=== PATIENT | male | born 1950 | race Caucasian/White ===

== ENCOUNTER 2017-09-24 19:28 | Observation (INO) | payer MEDICARE ==
[2017-09-24] MEDS ORDERED: Meclizine HCl 25 MG TAB ONE (20:27)
--- NOTE | 2017-09-24 20:32 | RAD ---
CHEST ONE VIEW 09/24/17 HISTORY: Chest pain. FINDINGS: No comparison. The cardiac silhouette is magnified by projection. Pulmonary vasculature is unremarkable. Mediastinum is midline. There is no confluent air space consolidation or evidence of pneumothorax. IMPRESSION: No active cardiopulmonary abnormalities are demonstrated. POS: [facility]
[2017-09-24 20:46] LABS: #Eosinphils 0.1 thou/uL (0.0-0.7); #Lymphocytes 0.8 thou/uL (1.20-3.40); #Monocytes 0.8 thou/uL (0.11-0.59); #Neutrophils 5.7 thou/uL (1.40-6.50); %Basophils 0.5 % (0.0-1.0); %Eosinophils 1.2 % (0.0-10.0); %Lymphocytes 10.7 % (21.0-51.0); Hematocrit 46.2 % (42.0-52.0); Mean Platelet Volume 7.5 fL (7.4-10.4); Red Blood Cell (RBC) Count 4.82 mill/uL (4.70-6.10); White Blood Cell (WBC) Count 7.4 thou/uL (4.8-10.8)
[2017-09-24 21:08] LABS: ALT (SGPT) 18 U/L (8-55); AST (SGOT) 19 U/L (5-34); Alkaline Phosphatase 79 U/L (40-150); Anion Gap 12 mmol/L (10-20); BUN (Urea Nitrogen) 16 mg/dL (8.4-25.7); Bilirubin, Total 0.5 mg/dL (0.2-1.2); CK (CPK) 278 U/L (30-200); Calc. Creatinine Clearance 0 mL/min (70-130); Calcium 9.2 mg/dL (7.8-10.44); Carbon Dioxide 26 mmol/L (23-31); Chloride 106 mmol/L (98-107); Estimated GFR-MDRD 64; Globulin 2.6 g/dL (2.4-3.5); Lipase 29 U/L (8-78); Protein, Total 6.5 g/dL (5.8-8.1)
[2017-09-24 21:12] LABS: Troponin I Less than 0.010 ng/mL (< 0.028)
[2017-09-24] MEDS ORDERED: Diabetic Tussin 200 MG/10 ML UDCUP PO PRN (22:03)
[2017-09-24] MEDS ORDERED: Senokot 8.6 MG TAB PO PRN (22:03)
[2017-09-24] MEDS ORDERED: Nitroglycerin 0.4 MG TAB (25 Tab Bottle) PO PRN (22:03)
[2017-09-24] MEDS ORDERED: Bisacodyl 5 MG TAB PO PRN (22:03)
[2017-09-24] MEDS ORDERED: cloNIDine 0.1 MG TAB PO PRN (22:03)
[2017-09-24] MEDS ORDERED: Lorazepam 1 MG TAB PO PRN (22:03)
[2017-09-24] MEDS ORDERED: Mag-Al 1200 mg/1200 mg/30 ML UDCUP PO PRN (22:03)
[2017-09-24] MEDS ORDERED: hydrALAZINE 20 MG/ML VIAL SLOW IVP PRN (22:03)
[2017-09-24] MEDS ORDERED: Calcium Carbonate 500 MG ChewTAB PO PRN (22:03)
[2017-09-24] MEDS ORDERED: Ondansetron HCl/PF 4 MG/2 ML Vial IVP PRN (22:03)
[2017-09-24] MEDS ORDERED: Benzonatate 100 MG CAP PO PRN (22:03)
[2017-09-24] MEDS ORDERED: HYDROcodone/Acetaminophen 5/325 mg Tablet PO PRN (22:03)
[2017-09-24] MEDS ORDERED: Nitroglycerin 0.4 MG TAB (25 Tab Bottle) SL PRN (22:03)
[2017-09-24] MEDS ORDERED: Acetaminophen 325 MG TAB PO PRN (22:03)
[2017-09-24] MEDS ORDERED: traMADol HCl 50 MG TAB PO PRN (22:03)
[2017-09-24] MEDS ORDERED: Loratadine 10 MG TAB PO PRN (22:03)
[2017-09-24 23:32] VITALS: BMI 27.4
[2017-09-24 23:56] LABS: Troponin I Less than 0.010 ng/mL (< 0.028)
[2017-09-25 02:42] LABS: Band 1 % (5-11); Hematocrit 43.5 % (42.0-52.0); Mean Platelet Volume 7.5 fL (7.4-10.4); Neutrophil 60 % (42-75); Red Blood Cell (RBC) Count 4.49 mill/uL (4.70-6.10); White Blood Cell (WBC) Count 4.9 thou/uL (4.8-10.8)
[2017-09-25 02:55] LABS: Troponin I Less than 0.010 ng/mL (< 0.028)
[2017-09-25 02:58] LABS: Anion Gap 11 mmol/L (10-20); BUN (Urea Nitrogen) 17 mg/dL (8.4-25.7); Calc. Creatinine Clearance 83 mL/min (70-130); Calcium 9.2 mg/dL (7.8-10.44); Carbon Dioxide 25 mmol/L (23-31); Chloride 108 mmol/L (98-107); Estimated GFR-MDRD 69
--- NOTE | 2017-09-25 05:43 | HP ---
DATE OF ADMISSION: 09/24/2017 The patient was seen on 09/24/2017 prior to midnight. PRIMARY CARE PHYSICIAN: Ibrahima Diaz M.D. CHIEF COMPLAINT: Left arm pain radiating to left shoulder. HISTORY OF PRESENT ILLNESS: Mr. Cotton is a pleasant, 67-year-old male with past medical history of hypertension, who presented to the emergency room with the above-mentioned complaint. History is ma inly obtained with the patient himself and electronic medical records have been reviewed. The patient reports that he has been hunting using a bow and arrow as he has always done. He was sit ting in a tree and he feels that he must have pulled his bow backwards too much and started to have p ain in the triceps area in his left arm. The pain was of a dull, squeezing kind of pain, and nothing that he could think "would make it better or worse." It was radiating through his left shoulder phuc de. He reported that his blood pressure was somewhat on the higher side with systolic around 130s an d diastolic around 80s. He decided to work out because he thinks that working out makes his blood pr essure go down. He was surprised when his blood pressure actually went up by working out as high as 154/100. He only takes lisinopril at home in the morning, and normally, his blood pressure in the 90 s range. Given high blood pressure, he got worried and called EMS. EMS found that he was hypoxic wi oxygen saturation of 84% and he was brought to the emergency room. Upon presentation to the ER, he was hemodynamically stable. His blood pressure was 132/97 with a pul se of 75 and saturation was 98% on room air. He underwent a 12-lead EKG, which showed first-degree A V block, but normal sinus rhythm. His cardiac enzymes were unremarkable. He was given aspirin in e emergency room and is now being admitted for ACS rule out. The patient denies history of similar symptoms. He denies any cardiac history. He denies any other recent illnesses. He denies any recent travels. He denies any shortness of breath even though his o xygen saturations were found to be low. He denies any dizziness, diaphoresis, nausea, vomiting, or p alpitations with the symptoms today. He denies any recent travels. He reports that even while sitti ng in the tree, he would stand and sit alternatively and is somewhat morning around. PAST MEDICAL HISTORY: Hypertension, history of prostate cancer 4 years ago, treated with radiation. He reports that his most recent PSA was within normal range. He follows up at [facility]. PAST SURGICAL HISTORY: Left knee replacement. PSYCHIATRIC HISTORY: No anxiety or depression. SOCIAL HISTORY: He is and lives with his family. No history of drug, tobacco or alcohol abu se. FAMILY HISTORY: Significant for heart disease in his father, who at the age of 55. He was also a smoker. He denies any history of stroke, diabetes, hypertension or cancer in his family. ALLERGIES: No known medication allergies. CURRENT MEDICATIONS: Lisinopril 10 mg daily. REVIEW OF SYSTEMS: The following complete review of systems was negative, unless otherwise mentioned in the HPI or below: CONSTITUTIONAL: Weight loss or gain, ability to conduct usual activities. SKIN: Rash, itching. EYES: Double vision, pain. ENT/MOUTH: Nose bleeding, neck stiffness, pain, tenderness. CARDIOVASCULAR: Palpitations, dyspnea on exertion, orthopnea. RESPIRATORY: Shortness of breath, wheezing, cough, hemoptysis, fever or night sweats. GASTROINTESTINAL: Poor appetite, abdominal pain, heartburn, nausea, vomiting, constipation, or diarr hea. GENITOURINARY: Urgency, frequency, dysuria, nocturia. MUSCULOSKELETAL: Pain, swelling. NEUROLOGIC/PSYCHIATRIC: Anxiety, depression. ALLERGY/IMMUNOLOGIC: Skin rash, bleeding tendency. LABORATORY DATA: His CBC shows macrocytosis with normal hemoglobin. Neutrophils of 76% with WBCs at 7.4. His D-dimer is less than 0.27. Serum chemistries unremarkable except for creatinine kinase of 278. Troponin is less than 0.010 x2. BNP is normal. Lipase is normal. Lipid panel is within norm al limits. Chest x-ray by my review has no evidence to suggest pulmonary effusion or edema. A 12-le ad EKG by my review shows normal sinus rhythm with right bundle branch block, otherwise unremarkable. PHYSICAL EXAMINATION: VITAL SIGNS: Most recent vital signs include temperature 98.6, pulse of 89, respirations 18, saturat ing 97% on room air, blood pressure 122/70. GENERAL: No acute distress, awake, alert, oriented x3. HEENT: Mucous membranes are moist and pink. No oropharyngeal exudate or erythema. Head is normocep halic, atraumatic. Pupils are equal, reactive to light and accommodation. Extraocular movements int act. NECK: Supple without any lymphadenopathy, JVD or bruit. CHEST: Clear to auscultation without any wheezing, rales or rhonchi. HEART: Rate and rhythm is regular without any murmur, rubs, or gallops. ABDOMEN: Soft, nontender, nondistended, positive bowel sounds. EXTREMITIES: Free of any cyanosis, clubbing, or edema. NEUROLOGIC: Nonfocal. SKIN: Free of any rashes or bruises. Feels warm and dry to touch. VASCULAR: A +2 pedal pulses felt bilaterally. PSYCHIATRIC: Normal affect. ASSESSMENT AND PLAN: 1. Left arm pain with radiation to back-rule out acute coronary syndrome. The patient's symptoms ar e most likely secondary to musculoskeletal sprain; however, given family history and personal history of hypertension, we will go ahead and admit him to telemetry floor and rule out acute coronary syndr ome with nuclear medicine stress test and serial cardiac enzymes. He has been provided aspirin in th e emergency room and it will be continued. Lipid panel has been checked and is within normal limits. Continue his REGGIE inhibitor for now. D-dimer is unremarkable, and his Wells' criteria is negligible , so pulmonary embolism is not clinically suspected at this time. 2. Hypoxia. This is likely secondary to him recently been working out. He has elevated creatinine kinase consistent with increased muscular activity. His chest x-ray does not suggest any chronic jennifer g diseases, and as above, we will be rule out cardiac causes. Currently, his oxygen saturation is im proved, and he is not requiring any supplemental oxygen. He will be monitored. 3. Hypertension. Resume his lisinopril 10 mg a day. 4. Deep venous thrombosis and gastrointestinal prophylaxis. 5. History of prostate cancer. The patient will continue to follow up with MD [facility]. By his per [place] report, he is in remission. 6. Add p.r.n. medication order. DISPOSITION: Mr. Cotton will be admitted to telemetry floor under observation to rule out acute cor onary syndrome. Further management will depend upon his clinical course.
[2017-09-25] MEDS ORDERED: Prevnar 13-Val Conj/PF 0.5 ML SYRINGE IM ONE (09:00)
[2017-09-25] MEDS ORDERED: Lisinopril 10 MG TAB PO SCH (09:00)
[2017-09-25] MEDS ORDERED: Enoxaparin Sodium 40 MG/0.4 ML SYRINGE SC SCH (09:00)
[2017-09-25] MEDS ORDERED: Aspirin 325 MG TAB PO SCH (09:00)
[2017-09-25] MEDS ORDERED: ADENOSINE 60 MG/20 ML VIAL ONE (12:00)
[2017-09-25 12:43] VITALS: BP 131/81; TEMP 98.3
--- NOTE | 2017-09-25 13:38 | NM ---
NUCLEAR MEDICINE CARDIAC STRESS TEST WITH EJECTION FRACTION: HISTORY: Chest pain. Hypertension. Family history of coronary artery disease. TECHNIQUE: Stress and rest was performed after the intravenous administration of 30 and 9 mCi technetium-99m ses tamibi intravenously, respectively. Exam was performed using Adenosine protocol. FINDINGS: No scar or ischemia. Normal wall motion. Normal ejection fraction of 69%. IMPRESSION: Normal nuclear medicine cardiac stress test and ejection fraction. POS: [facility]
--- NOTE | 2017-09-25 15:58 | PRG ---
DATE OF SERVICE: 09/25/2017 SUBJECTIVE: This patient is doing much better today. No chest pain, shortness of breath, nausea, or vomiting. PHYSICAL EXAMINATION: VITAL SIGNS: Blood pressure is 132/91, afebrile, pulse of 69, respirations 18, breathing comfortably on room air. GENERAL: The patient is lying in bed in no apparent distress. HEENT: Atraumatic and normocephalic. Pupils equally round, react to light. Extraocular movements a re intact. Mucous membranes are moist. NECK: Supple. No JVD. CHEST: Breath sounds are heard. No rales or rhonchi. HEART: S1, S2. No murmurs or gallops. ABDOMEN: Soft. EXTREMITIES: No cyanosis, clubbing, or edema. Distal pulses present. NEUROLOGIC: Alert, awake, and oriented. No cranial deficits. No sensorimotor deficits. ASSESSMENT AND PLAN: 1. Left arm pain with radiation to the back, rule out acute coronary syndrome. Follow stress test. 2. Hypoxia has resolved, possibly secondary to an error in reading of the machine of the paramedics. He has been having no shortness of breath or hypoxia this hospital stay. 3. Hypertension, stable. 4. History of prostate cancer, stable. 5. Sequential compression devices for deep venous thrombosis prophylaxis.
--- NOTE | 2017-09-26 00:16 | DIS ---
DATE OF ADMISSION: 09/24/2017 DATE OF DISCHARGE: 09/25/2017 DIAGNOSES ON DISCHARGE: Left arm pain, musculoskeletal in origin; stress test which was within nevin l limits with an ejection fraction of 61%; high blood pressure which has been controlled; hypoxia pos sibly secondary to erroneous reading on the pulse ox; history of prostate cancer. DISCHARGE MEDICATIONS: Include all home medications plus aspirin 81 mg p.o. daily. BRIEF HOSPITAL COURSE: This is a 67-year-old pleasant gentleman who hurt his left arm or said he had a weird sensation after he was using some bow and arrow for hunting. He came home and checked his b lood pressure, it was high, and he called paramedics as he was concerned, so he came into the hospita for evaluation of the left arm pain and high blood pressure. He was admitted to rule out any cardi ac causes of the arm pain. The patient had a chest x-ray which was normal. A stress test was schedu led; it was negative. His ejection fraction was 61%. His blood pressure and his oxygen saturations have been absolutely fine this hospital stay. He is right now medically stable to be discharged with outpatient follow up with PCP. He was asked to come back to the emergency room in case symptoms rec ur. Total time for this discharge took 35 minutes.
--- NOTE | 2017-10-06 04:30 | STRESS ---
Acquisition Time: 2017-09-25 10:34:25 Total Exercise Time: 00:04:00 Test Indications: CHEST PAIN Medications: Protocol: ADENOSINE Max HR: 094 BPM 61% of Pred: 154 BPM Max BP: 130/080 mmHG Max Work Load: 1.0 METS RESTING ECG: NORMAL SINUS RHYTHM AT 73 BPM WITH EARLY R-WAVE TRANSITION SYMPTOMS: NONE NORMAL BP RESPONSE ECTOPY: NONE ECG STRESS: NO SIGNIFICANT CHANGES INTERPRETATION: NEGATIVE ECG/AWAIT NUCLEAR IMAGES FOR DEFINITIVE DIAGNOSIS Confirmed by ELLA ALVAREZ M.D. ([id number]) on 10/06/2017 4:29:43 AM Referred By: MD Fransico PINA Confirmed By:ELLA ALVAREZ M.D.
--- NOTE | 2017-11-08 10:00 | EKG ---
Test Reason : HTN Blood Pressure : / mmHG Vent. Rate : 066 BPM Atrial Rate : 066 BPM P-R Int : 210 ms QRS Dur : 080 ms QT Int : 400 ms P-R-T Axes : 069 054 020 degrees QTc Int : 419 ms Sinus rhythm with 1st degree A-V block Otherwise normal ECG Confirmed by MIKE BAILON, JESENIA Seymour ([id number]), editor school photograph CHARLIE HERRERA ([id number]) on 11/08/2017 9:59:57 AM Referred By: ERMD Confirmed By:JESENIA MCKEON MD
== END 2017-09-25 15:18 | disposition home or self-care (01) ==
LOC: ERS 19:28 → 2SW 22:54
PROVIDERS: ADMIT Internal Medicine; ATTEND Internal Medicine
DX: M79.602 Pain in left arm (principal); I10 Essential (primary) hypertension; Z79.899 Other long term (current) drug therapy; Z96.652 Presence of left artificial knee joint; Z85.46 Personal history of malignant neoplasm of prostate; Z82.49 Family history of ischemic heart disease and other diseases of the circulatory system; R07.9 Chest pain, unspecified
CPT/HCPCS: 71010; 78452; 80048; 80053; 80061; 82550; 82553; 83690; 83880; 84484 ×3; 85025 ×2; 85379; 93005; 93017; 94760; 97139; 99285; A9500; G0378; 36415; J0153

== ENCOUNTER 2024-05-12 08:00 | Outpatient (CLI) | payer MEDICARE | END 2024-05-12 08:01 | disposition home or self-care (01) | LOC: PET 08:00 | PROVIDERS: ATTEND Psychiatry & Neurology Neurology | DX: D49.9 Neoplasm of unspecified behavior of unspecified site (principal) | CPT/HCPCS: 78816; A9552 ==

== ENCOUNTER 2025-08-08 13:06 | Outpatient (CLI) | payer MEDICARE | END 2025-08-08 13:07 | disposition home or self-care (01) | LOC: SCSBT 13:06 | PROVIDERS: ATTEND Internal Medicine | DX: Z13.820 Encounter for screening for osteoporosis (principal); Z79.83 Long term (current) use of bisphosphonates; M85.851 Other specified disorders of bone density and structure, right thigh; M85.852 Other specified disorders of bone density and structure, left thigh | CPT/HCPCS: 77080 ==